=== PATIENT | female | born 1960 ===

== ENCOUNTER 2020-11-11 00:39 | Outpatient (REF) | payer MEDICARE, OTHER, SELFPAY ==
[2020-11-11 07:59] LABS: Mean Corpuscular HGB Conc 32.4 g/dl (31.0-35.0); Mean Corpuscular Hemoglobin 27.2 pg (27.0-33.0); Mean Platelet Volume 10.4 fL (9.4-12.3); Platelet Count 193 X10*3/uL (160-400); Red Blood Count 2.43 X10*6/uL (4.20-5.50); Red Cell Distribution Width 16.5 % (11.0-16.0); White Blood Count 5.2 X10*3/uL (4.8-10.8)
[2020-11-11 08:26] LABS: Hematocrit 20.4 % (37-47); Hemoglobin 6.6 g/dl (12.0-16.0)
[2020-11-11 08:45] LABS: Anion Gap 14 (12-20); Blood Urea Nitrogen 25 mg/dL (9-16); Calcium 7.5 mg/dL (8.4-10.2); Carbon Dioxide 28 mmol/L (22-29); Chloride 101 mmol/L (96-108); Estimated Glomerular Filt Rate 7; Glucose Random 74 mg/dL (60-115); Potassium 3.8 mmol/L (3.3-5.1); Sodium 139 mmol/L (135-145)
== END 2020-11-11 00:40 | disposition home or self-care (01) ==
LOC: HO.MMNH1L 00:39
PROVIDERS: Visit Provider Family Medicine
DX: I12.0 Hypertensive chronic kidney disease with stage 5 chronic kidney disease or end stage renal disease (principal); N18.6 End stage renal disease
CPT/HCPCS: 36415; 80048; 85027; 85060

== ENCOUNTER 2020-11-18 10:25 | Outpatient (REF) | payer SELFPAY | END 2020-11-18 10:26 | disposition home or self-care (01) | LOC: HO.MMNH1L 10:25 | PROVIDERS: Visit Provider Family Medicine | DX: Z13.89 Encounter for screening for other disorder (principal) ==